=== PATIENT | male | born 1995 | race Caucasian/White ===

== ENCOUNTER 2020-12-22 09:41 | Emergency (ER) | payer OTHER ==
[~2020-12-22] VITALS: Ht 170.2 cm; Wt 58.0 kg
[2020-12-22 09:56] VITALS: BP 147/69
== END 2020-12-22 18:00 | disposition home or self-care (01) ==
LOC: ER 09:42
DX: S01.01XA Laceration without foreign body of scalp, initial encounter (principal); V00.138A Other skateboard accident, initial encounter; Y93.89 Activity, other specified; Y92.89 Other specified places as the place of occurrence of the external cause; Y99.8 Other external cause status
CPT/HCPCS: 12002; 99282

== ENCOUNTER 2021-02-26 02:13 | Emergency (ER) | payer OTHER ==
[~2021-02-26] VITALS: Ht 172.7 cm; Wt 65.9 kg
[2021-02-26] MEDS ORDERED: glucagon, human recombinant 1mg kit IM ONE (02:30)
[2021-02-26] MEDS ORDERED: LORazepam 2 mg/ml vial IM ONE ×2 (02:30→04:10)
[2021-02-26 05:07] VITALS: BP 121/87
[2021-02-27] MEDS ORDERED: PANT-47 PO (16:22)
== END 2021-02-26 05:05 | disposition home or self-care (01) ==
LOC: ER 02:14
DX: T18.128A Food in esophagus causing other injury, initial encounter (principal); X58.XXXA Exposure to other specified factors, initial encounter; Y93.89 Activity, other specified; Y92.89 Other specified places as the place of occurrence of the external cause; Y99.8 Other external cause status
CPT/HCPCS: 96372; 99284; J1610; J2060

== ENCOUNTER 2021-02-27 11:42 | Emergency (ER) | payer OTHER ==
[~2021-02-27] VITALS: Ht 172.7 cm; Wt 65.9 kg
[2021-02-27] MEDS ORDERED: ondansetron 4mg rapidly disintigrating tab PO ONE (12:35)
[2021-02-27] MEDS ORDERED: glucagon, human recombinant 1mg kit IM ONE (12:35)
[2021-02-27 12:49] LABS: BASOPHILS % (AUTO) 0.7 % (0-1); EOSINOPHILS # (AUTO) 0.2 X10'3 (0-0.9); EOSINOPHILS % (AUTO) 2.6 % (0-6); HEMATOCRIT 39.5 % (42.0-52.0); HEMOGLOBIN 13.7 g/dl (14.0-17.9); LYMPHOCYTES # (AUTO) 1.7 X10'3 (1.1-4.8); MEAN CORPUSCULAR HEMOGLOBIN 29.3 PG (27.0-31.0); MEAN CORPUSCULAR HGB CONC 34.6 g/dL (33.0-36.5); MEAN CORPUSCULAR VOLUME 84.5 FL (78-98); MONOCYTES # (AUTO) 0.5 X10'3 (0-0.9); MONOCYTES % (AUTO) 7.5 % (2-12); NEUTROPHILS # (AUTO) 4.4 X10'3 (1.8-7.7); NEUTROPHILS % (AUTO) 64.2 % (42-75); PLATELET COUNT 259 X10'3 (140-440); RED BLOOD COUNT 4.68 X10'6 (4.70-6.10); RED CELL DISTRIBUTION WIDTH 13.2 % (11.5-14.5); WHITE BLOOD COUNT 6.9 X10'3 (4.5-11.0)
[2021-02-27] MEDS ORDERED: nitroGLYCERIN 0.4mg SUBLingual tab SL PRN (12:55)
[2021-02-27] MEDS ORDERED: LORazepam 2 mg/ml vial IV ONE (12:55)
[2021-02-27 13:03] LABS: ALANINE AMINOTRANSFERASE 31 U/L (12-78); ALBUMIN 4.8 G/DL (3.4-5.0); ALBUMIN/GLOBULIN RATIO 1.3 (1.1-1.5); ALKALINE PHOSPHATASE 51 IU/L (46-116); ANION GAP 13 (8-16); ASPARTATE AMINO TRANSFERASE 30 U/L (10-37); BILIRUBIN,TOTAL 3.5 MG/DL (0.1-1.0); BLOOD UREA NITROGEN 15 MG/DL (7-18); BUN/CREATININE RATIO 15.8 (5.4-32.0); CALCIUM 9.3 MG/DL (8.5-10.1); CHLORIDE 105 MMOL/L (99-107); CREATININE 0.95 MG/DL (0.60-1.10); GLUCOSE 86 MG/DL (70-104); MAGNESIUM 1.8 MG/DL (1.5-2.4); POTASSIUM 3.8 MMOL/L (3.5-5.1); SODIUM 142 MMOL/L (135-145); TOTAL CARBON DIOXIDE 24.2 MMOL/L (24-32); TOTAL PROTEIN 8.4 G/DL (6.4-8.2); eGFR > 90 ML/MIN
[2021-02-27 14:35] VITALS: BP 127/64
[2021-02-27] MEDS ORDERED: fentaNYL/PF 50MCG/1 ML 2ML syringe ONE (14:36)
[2021-02-27] MEDS ORDERED: LIDOcaine Viscous 15ml cup ONE (14:36)
[2021-02-27] MEDS ORDERED: MIDAZolam 1 MG/ML 5ML VIAL ONE (14:36)
[2021-02-27 15:20] VITALS: BP 120/67
[2021-02-27 15:30] VITALS: BP 116/65
[2021-02-27 15:40] VITALS: BP 114/60
[2021-02-27 15:50] VITALS: BP 113/62
[2021-02-27 16:00] VITALS: BP 117/59
[2021-02-27] MEDS ORDERED: PANT-47 PO (16:22)
== END 2021-02-27 16:56 | disposition home or self-care (01) ==
LOC: ER 11:43
DX: T18.108A Unspecified foreign body in esophagus causing other injury, initial encounter (principal); K20.0 Eosinophilic esophagitis; Z79.899 Other long term (current) drug therapy; X58.XXXA Exposure to other specified factors, initial encounter; Y93.89 Activity, other specified; Y92.89 Other specified places as the place of occurrence of the external cause; Y99.8 Other external cause status
CPT/HCPCS: 36415; 43239; 80053; 83735; 85025; 96372; 96374; 99152; 99285; J1610; J2060; J2250; J3010; J7040; Z7512; A4620